=== PATIENT | female | born 1975 | race African-American/Black ===

== ENCOUNTER → 2017-07-13 | Outpatient (CLI) | payer BC ==
--- NOTE | 2017-07-17 21:34 | RAD ---
HISTORY: Low back pain Study: Lumbar spine AP, lateral, spot, bilateral obliques Comparison: None Findings: The alignment is normal. The vertebral bodies are of average height. The disc spaces are preserved. T he pedicles are intact. The SI joints are normal. No spondylolysis or spondylolisthesis is identified . Incidental note is made of cholelithiasis. IMPRESSION: Normal lumbar spine Cholelithiasis Reported By:
== END | disposition home or self-care (01) | DRG 552 ==
LOC: RAD 13:03
PROVIDERS: ATTEND Internal Medicine
DX: M54.5 Low back pain (principal); K80.80 Other cholelithiasis without obstruction
CPT/HCPCS: 72110